=== PATIENT | female | born 1995 | race Caucasian/White ===

== ENCOUNTER 2019-04-30 22:24 | Emergency (ER) | payer SELFPAY ==
[~2019-04-30] VITALS: Ht 157.5 cm; Wt 69.4 kg
[2019-04-30 22:29] VITALS: BP 126/85; Ht 157.5 cm; Wt 69.4 kg
== END 2019-05-01 00:40 | disposition left against medical advice (07) ==
LOC: ED 22:24
DX: Z53.21 Procedure and treatment not carried out due to patient leaving prior to being seen by health care provider (principal)